=== PATIENT | female | born 1965 | race Caucasian/White ===

== ENCOUNTER 2018-12-09 10:41 | Emergency (ER) | payer SELFPAY ==
[2018-12-09] MEDS ORDERED: LIDOCAINE 1% MPF 5 ML VIAL ONE (11:51)
--- NOTE | 2018-12-09 11:53 | EDPHYS ---
Physician Documentation [facility] Name: Peggy Allen Age: 52 yrs Sex: Female : 1965 Arrival Date: 12/09/2018 Time: 10:48 Bed 14 Private MD: ED Physician Daniele Headley HPI: 12/09 10:56 This 52 yrs old Female presents to ER via Ambulatory with complaints of Fall rn Injury, Finger Injury. 10:56 Details of fall: The patient fell from an upright position. Onset: The symptoms/episode rn began/occurred yesterday. Associated injuries: The patient sustained left hand. Severity of symptoms: At their worst the symptoms were moderate, in the emergency department the symptoms are unchanged. The patient has not experienced similar symptoms in the past. Reports fall from standing chasing a cat yesterday, pain to left 4th/5th digits, reports was more deformed yesterday, pulled on it, straightened a little but not normal. Reports scraped her face but no LOC, no focal neurological problems, no blood thinners. No other extremity injury, states isolated to left hand. 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 - Social history:: Smoking status: . - Ebola Screening: : Patient denies travel to an Ebola-affected area in the 21 days before illness onset. - Family history:: not pertinent. - Hospitalizations: : No recent hospitalization is reported. ROS: 10:56 Constitutional: Negative for fever, chills, and weight loss, Eyes: Negative for injury, rn pain, redness, and discharge, MS/Extremity: + injury and deformity to left 4th/5th digits Skin: Abrasions to left hand and left cheek Neuro: Negative for headache, weakness, numbness, tingling, and seizure. Exam: 10:56 Constitutional: This is a well developed, well nourished patient who is awake, alert, rn and in no acute distress. Head/Face: Normocephalic, superficial abrasion to left cheek, no laceration Eyes: Pupils equal round and reactive to light, extra-ocular motions intact. Lids and lashes normal. Conjunctiva and sclera are non-icteric and not injected. Cornea within normal limits. Periorbital areas with no swelling, redness, or edema. MS/ Extremity: Pulses equal, no cyanosis. Neurovascular intact. + left hand with mild swelling/ecchymosis, and decreased/painful ROM left 4th/5th digits. + scissoring deformity involving left 4th digit. Neuro: Awake and alert, GCS 15, oriented to person, place, time, and situation. Cranial nerves II-XII grossly intact. Motor strength 5/5 in all extremities. Sensory grossly intact. Cerebellar exam normal. Normal gait. Vital Signs: 10:55 BP 107 / 62; Pulse 67; Resp 18; Temp 97.9(O); Pulse Ox 97% on R/A; Weight 65.77 kg; tw2 Height 5 ft. 9 in. (175.26 cm); Pain 4/10; 12:26 BP 118 / 70; Pulse 68; Resp 17; Pulse Ox 99% on R/A; tw2 10:55 Body Mass Index 21.41 (65.77 kg, 175.26 cm) tw2 Procedures: 11:47 Splinting: Splint applied to left hand using Orthoglass splint, applied by myself. rn Examined by co, post splint application: neurovascular intact, 2+ distal pulses palpable, brisk capillary refill noted, Patient tolerated well. Nerve block: (digital) of palmar aspect of proximal phalanx of left ring finger Medication: Lidocaine 1% without epinephrine Amount: 3 mls were injected, Effect: the patient's symptoms are improved, Set up for procedure. Performed by Daniele Headley MD Patient tolerated well. MDM: 10:51 Patient medically screened. rn 11:51 Differential diagnosis: contusion, fracture. Data reviewed: vital signs, nurses notes, rn radiologic studies, plain films, and as a result, I will discharge patient. Counseling: I had a detailed discussion with the patient and/or guardian regarding: the historical points, exam findings, and any diagnostic results supporting the discharge/admit diagnosis, radiology results, the need for outpatient follow up, to return to the emergency department if symptoms worsen or persist or if there are any questions or concerns that arise at home. Special discussion: I discussed with the patient/guardian in detail that at this point there is no indication for admission to the hospital. It is understood, however, that if the symptoms persist or worsen the patient needs to return immediately for re-evaluation. Based on the history and exam findings, there is no indication for further emergent testing or inpatient evaluation. I discussed with the patient/guardian the need to see the hand specialist for further evaluation of the symptoms. 12/09 10:56 Order name: XRAY Hand LEFT 3 View rn Administered Medications: 11:46 Drug: Lidocaine (1 %) 5 mg {Note: to left hand by dr. headley.} Route: Infiltration; tw2 Disposition: 12/09/18 11:52 Discharged to Home. Impression: Displaced fracture of proximal phalanx of left ring finger, Displaced fracture of proximal phalanx of left little finger. - Condition is Stable. - Discharge Instructions: Cast or Splint Care, Adult, Finger Fracture. - Prescriptions for Tylenol- Codeine #3 300-30 mg Oral Tablet - take 1 tablet by ORAL route every 6 hours As needed; 20 tablet. - Medication Reconciliation Form, Thank You Letter, Antibiotic Education, Prescription Opioid Use, Work release form form. - Follow up: Martir Willis MD; When: 5 - 6 days; Reason: Recheck today's complaints, Re-evaluation by your physician. - Problem is new. - Symptoms have improved. Signatures: Dispatcher [employer] EDDaniele Mirza MD MD rn Wise, Tara, RN RN tw2 Corrections: (The following items were deleted from the chart) 12:28 11:52 12/09/2018 11:52 Discharged to Home. Impression: Displaced fracture of proximal tw2 phalanx of left ring finger; Displaced fracture of proximal phalanx of left little finger. Condition is Stable. Forms are Work release form, Medication Reconciliation Form, Thank You Letter, Antibiotic Education, Prescription Opioid Use. Follow up: Martir Willis; When: 5 - 6 days; Reason: Recheck today's complaints, Re-evaluation by your physician. Problem is new. Symptoms have improved. rn
--- NOTE | 2018-12-09 11:53 | ER ---
Nurse's Notes [facility] Name: Peggy Allen Age: 52 yrs Sex: Female : 1965 Arrival Date: 12/09/2018 Time: 10:48 Bed 14 Private MD: Diagnosis: Displaced fracture of proximal phalanx of left ring finger;Displaced fracture of proximal phalanx of left little finger Presentation: 12/09 10:52 Presenting complaint: Patient states: i was trying to get my cat out of the road and i tw2 tripped on my flip flops and skidded on the road, i got road rash on my LEFT side of my face but my wrist caught me and its more swollen today and painful and i got to try to go to work tomorrow. Transition of care: patient was not received from another setting of care. Onset of symptoms was December 09, 2018. Risk Assessment: Do you want to hurt yourself or someone else? Patient reports no desire to harm self or others. Initial Sepsis Screen: Does the patient meet any 2 criteria? No. Patient's initial sepsis screen is negative. Does the patient have a suspected source of infection? No. Patient's initial sepsis screen is negative. Care prior to arrival: None. 10:52 Method Of Arrival: Ambulatory tw2 10:52 Acuity: SARAH 4 tw2 Triage Assessment: 10:53 General: Appears in no apparent distress. slender, Behavior is calm, cooperative, tw2 appropriate for age. Pain: Complains of pain in left arm. EENT: No signs and/or symptoms were reported regarding the EENT system. Neuro: Level of Consciousness is awake, alert, obeys commands, Oriented to person, place, time, situation. Cardiovascular: Patient's skin is warm and dry. Respiratory: Respiratory effort is even, unlabored, Respiratory pattern is regular, symmetrical. GI: No signs and/or symptoms were reported involving the gastrointestinal system. Abdomen is flat. : No signs and/or symptoms were reported regarding the genitourinary system. Derm: Skin is intact, is healthy with good turgor, abrasion noted to left cheek and chin. Musculoskeletal: Swelling present in left wrist and left hand. 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 - Social history:: Smoking status: . - Ebola Screening: : Patient denies travel to an Ebola-affected area in the 21 days before illness onset. - Family history:: not pertinent. - Hospitalizations: : No recent hospitalization is reported. Screenin:57 Abuse screen: Denies threats or abuse. Nutritional screening: No deficits noted. tw2 Tuberculosis screening: No symptoms or risk factors identified. Fall Risk None identified. Assessment: 11:55 Reassessment: provider at bedside splinting at this time. tw2 12:26 Reassessment: Patient appears in no apparent distress at this time. No changes from tw2 previously documented assessment. Patient and/or family updated on plan of care and expected duration. Pain level reassessed. Patient is alert, oriented x 3, equal unlabored respirations, skin warm/dry/pink. Vital Signs: 10:55 BP 107 / 62; Pulse 67; Resp 18; Temp 97.9(O); Pulse Ox 97% on R/A; Weight 65.77 kg; tw2 Height 5 ft. 9 in. (175.26 cm); Pain 4/10; 12:26 BP 118 / 70; Pulse 68; Resp 17; Pulse Ox 99% on R/A; tw2 10:55 Body Mass Index 21.41 (65.77 kg, 175.26 cm) tw2 ED Course: 10:48 Patient arrived in ED. mr 10:51 Daniele Headley MD is Attending Physician. rn 10:52 Nereyda Murphy RN is Primary Nurse. tw2 10:53 Triage completed. tw2 10:53 Arm band placed on. tw2 10:57 Bed in low position. Call light in reach. Adult w/ patient. tw2 11:25 X-ray completed. Portable x-ray completed in exam room. Patient tolerated procedure la2 well. 11:40 XRAY Hand LEFT 3 View In Process Unspecified. EDMS 11:52 Martir Willis MD is Referral Physician. rn 12:07 Orthoglass splint: Ulnar gutter/Boxer splint applied on left forearm. jb1 12:27 No provider procedures requiring assistance completed. Patient did not have IV access tw2 during this emergency room visit. Administered Medications: 11:46 Drug: Lidocaine (1 %) 5 mg {Note: to left hand by dr. headley.} Route: Infiltration; tw2 Outcome: 11:52 Discharge ordered by . rn 12:27 Discharged to home ambulatory, with significant other. tw2 12:27 Condition: stable 12:27 Discharge instructions given to patient, significant other, Instructed on discharge instructions, follow up and referral plans. no drinking with medication, no driving heavy equipment, medication usage, splint care, cms Demonstrated understanding of instructions, follow-up care, medications, splint care, cms Prescriptions given X 1. 12:28 Patient left the ED. tw2 Signatures: Dispatcher [employer] EDMS Rupert Alvarenga jb1 Eloisa Milligan mr Fang, MD WALE Sanabria rn Nereyda Murphy RN RN tw2 Michelle York2
--- NOTE | 2018-12-09 12:58 | RAD REPORT ---
EXAM DESCRIPTION: RAD - Hand Left 3 View - 12/09/2018 11:39 am CLINICAL HISTORY: Trip and fall, hand pain COMPARISON: None. FINDINGS: Transverse fractures are present in the base of the fourth and fifth proximal phalanges. A rticular surfaces at the MCP joints do not appear to be involved. There is dorsal angulation of the f ourth digit fracture and only minimal dorsal angulation of the fifth digit fracture. No pathologic co mponent. No other fractures seen. No foreign body in the soft tissues. IMPRESSION: Fractures of the fourth and fifth left proximal phalanges as detailed.
== END 2018-12-09 12:28 | disposition home or self-care (01) ==
LOC: ER 10:41
PROC: 2W3DX1Z Immobilization of Left Lower Arm using Splint (ICD-10-PCS; principal; 2018-12-09)
DX: S62.617A Displaced fracture of proximal phalanx of left little finger, initial encounter for closed fracture (principal); S62.615A Displaced fracture of proximal phalanx of left ring finger, initial encounter for closed fracture; W19.XXXA Unspecified fall, initial encounter; Y93.89 Activity, other specified; Y92.9 Unspecified place or not applicable; Z88.0 Allergy status to penicillin
CPT/HCPCS: 64450; 99284